=== PATIENT | female | born 1930 | race Caucasian/White ===

== ENCOUNTER 2020-03-27 06:37 | Observation (INO) | payer MEDICARE, OTHER ==
[~2020-03-27] VITALS: Ht 157.5 cm; Wt 68.5 kg
[2020-03-27] MEDS ORDERED: AMOX1TAB12 PO (07:43)
[2020-03-27] MEDS ORDERED: AMLO-210 PO (07:43)
[2020-03-27] MEDS ORDERED: HYDR-3343 PO (07:44)
[2020-03-27] MEDS ORDERED: PROBIOTIC PO (08:00)
[2020-03-27] MEDS ORDERED: TUMERIC PO (08:00)
[2020-03-27] MEDS ORDERED: VITAMIN B12 PO (08:00)
[2020-03-27] MEDS ORDERED: CHLORHEXIDINE 15 ML UDC MM ONE (08:00)
[2020-03-27] MEDS ORDERED: ACYC-57 PO (08:00)
[2020-03-27] MEDS ORDERED: DORZ10DR7 EACHEYE (08:00)
[2020-03-27] MEDS ORDERED: ASPI81TA45 PO (08:00)
[2020-03-27] MEDS ORDERED: PRAV20TA2 PO (08:00)
[2020-03-27] MEDS ORDERED: LACTATED RINGERS 1,000 ML IV SCH (08:00)
[2020-03-27] MEDS ORDERED: MELO15TA24 PO (08:00)
[2020-03-27] MEDS ORDERED: LATA2.5D4 EACHEYE (08:00)
[2020-03-27] MEDS ORDERED: OMEP40CA42 PO (08:00)
[2020-03-27] MEDS ORDERED: ACET-1600 PO (08:00)
[2020-03-27] MEDS ORDERED: GABA-826 PO (08:00)
[2020-03-27 08:03] VITALS: BP 135/68
[2020-03-27 08:32] LABS: MICROSCOPIC AUTO
[2020-03-27] MEDS ORDERED: BUPIVACAINE/PF 0.5% ONE (13:45)
[2020-03-27] MEDS ORDERED: EPINEPHRINE 1 MG/ML, 1ML ONE (13:45)
[2020-03-27] MEDS ORDERED: BACITRACIN 50,000 UNIT ONE (13:45)
[2020-03-27] MEDS ORDERED: FENTANYL PF 250 MCG/5ML ONE (14:06)
[2020-03-27] MEDS ORDERED: NEOSTIGMINE 1 MG/ML, 10ML ONE (14:45)
[2020-03-27] MEDS ORDERED: SUCCINYLCHOLINE 20 MG/ML, 10ML ONE (14:45)
[2020-03-27] MEDS ORDERED: PROPOFOL 10 MG/ML, 20ML ONE (14:45)
[2020-03-27] MEDS ORDERED: CEFAZOLIN 1,000 MG ONE (14:45)
[2020-03-27] MEDS ORDERED: GLYCOPYRROLATE 0.2MG/1ML, 5ML ONE (14:45)
[2020-03-27] MEDS ORDERED: ONDANSETRON 2MG/ML, 2ML ONE ×2 (14:45→17:05)
[2020-03-27] MEDS ORDERED: ROCURONIUM 10 MG/ML,10ML ONE (14:45)
[2020-03-27] MEDS ORDERED: PROPOFOL 10 MG/ML, 50ML ONE (14:45)
[2020-03-27] MEDS ORDERED: NEOSPORIN OINT, 15GM ONE (15:25)
[2020-03-27] MEDS ORDERED: HALOPERIDOL 5 MG/ML IV PRN (15:30)
[2020-03-27] MEDS ORDERED: OXYcodone 5 MG/5 ML ORAL.SOL UDC PO PRN (15:30)
[2020-03-27] MEDS ORDERED: METHOCARBAMOL 1,000 MG in DEXTROSE 5% 100 ML IV PRN (15:30)
[2020-03-27] MEDS ORDERED: EPHEDRINE 50 MG/ML, 1ML IVPush PRN (15:30)
[2020-03-27] MEDS ORDERED: LABETALOL 5MG/ML, 20ML IV PRN (15:30)
[2020-03-27] MEDS ORDERED: ACETAMINOPHEN 325 MG TABLET PO PRN ×2 (15:30→23:00)
[2020-03-27] MEDS ORDERED: EPHEDRINE 50 MG/ML, 1ML IM PRN (15:30)
[2020-03-27] MEDS ORDERED: hydrALAzine 20 MG/ML, 1ML IV PRN (15:30)
[2020-03-27] MEDS ORDERED: ACETAMINOPHEN 650 MG/20.3 ML UDC ONE (15:46)
[2020-03-27] MEDS ORDERED: FENTANYL PF 100 MCG/2ML ONE ×2 (15:46→16:02)
[2020-03-27] MEDS ORDERED: OXYcodone 5 MG/5 ML ORAL.SOL UDC ONE (15:47)
[2020-03-27] MEDS: FENTANYL PF 100 MCG/2ML IV PRN ×5 (15:51→16:30)
[2020-03-27] MEDS ORDERED: HYDROmorphone 1 MG/ML, 1ML INJ ONE (16:02)
[2020-03-27] MEDS: HYDROmorphone 1 MG/ML, 1ML INJ IVPush PRN ×2 (16:07→16:14)
[2020-03-27] MEDS ORDERED: ONDANSETRON 2MG/ML, 2ML IVPush ONE (17:30)
[2020-03-27] MEDS ORDERED: PROMETHAZINE 25 MG/ML, 1ML ONE (18:16)
[2020-03-27] MEDS ORDERED: HALOPERIDOL 5 MG/ML ONE (18:17)
[2020-03-27] MEDS ORDERED: DIPHENHYDRAMINE 50 MG/ML, 1ML ONE (18:33)
[2020-03-27] MEDS ORDERED: DIPHENHYDRAMINE 50 MG/ML, 1ML IVPush ONE (19:00)
[2020-03-27] MEDS ORDERED: HYDROmorphone 2 MG/ML, 1ML IVPush PRN (23:00)
[2020-03-27] MEDS ORDERED: ONDANSETRON 2MG/ML, 2ML IVPush PRN (23:00)
[2020-03-28] VITALS: BP 133/65
[2020-03-28 03:26] VITALS: BP 159/76
[2020-03-28] MEDS: HYDROcodone/APAP 5/325 TABLET PO PRN ×3 (03:38→11:19)
[2020-03-28 07:24] VITALS: BP 142/60
[2020-03-28] MEDS ORDERED: OXYC5CAP2 PO (10:34)
[2020-03-28] MEDS ORDERED: DOCU100C33 PO (10:34)
[2020-03-28 11:13] VITALS: BP 150/79
[2020-03-28 11:29] VITALS: BP 142/75
== END 2020-03-28 12:04 | disposition home or self-care (01) ==
LOC: OUT 06:37 → 4NE 19:36 → OUT 22:59 → 4NE 22:59 → DCLOUNGE 03-28 11:55
PROVIDERS: ADMIT Orthopaedic Surgery; ATTEND Orthopaedic Surgery
DX: S52.022A Displaced fracture of olecranon process without intraarticular extension of left ulna, initial encounter for closed fracture (principal); Z20.828 Contact with and (suspected) exposure to other viral communicable diseases; M81.0 Age-related osteoporosis without current pathological fracture; M19.90 Unspecified osteoarthritis, unspecified site; I10 Essential (primary) hypertension; K21.9 Gastro-esophageal reflux disease without esophagitis; H40.9 Unspecified glaucoma; Z79.899 Other long term (current) drug therapy; W18.30XA Fall on same level, unspecified, initial encounter; Y93.89 Activity, other specified; Y92.009 Unspecified place in unspecified non-institutional (private) residence as the place of occurrence of the external cause
CPT/HCPCS: 24685; 71045; 73070; 76000; 81001; 82962; 87635; 93005; 96374; 96375; C1713; G0378; J0171; J0330; J0690; J1170; J1200; J1630; J2405; J2704; J2710; J2800; J3010; J7120; S0020